=== PATIENT | female | born 1960 | race Caucasian/White ===

== ENCOUNTER 2020-08-25 13:18 | Outpatient (CLI) | payer MEDICARE | END 2020-08-25 23:59 | disposition home or self-care (01) | LOC: CFH 13:18 | PROVIDERS: ATTEND Internal Medicine | DX: I73.9 Peripheral vascular disease, unspecified (principal); R11.0 Nausea; K21.9 Gastro-esophageal reflux disease without esophagitis; K64.8 Other hemorrhoids; K58.1 Irritable bowel syndrome with constipation; D12.6 Benign neoplasm of colon, unspecified; F41.9 Anxiety disorder, unspecified; I67.82 Cerebral ischemia | CPT/HCPCS: 70450 ==

== ENCOUNTER 2020-09-10 10:04 | Outpatient (CLI) | payer MEDICARE ==
[2020-09-10] MEDS ORDERED: HYDR-2214 PO (10:46)
[2020-09-10] MEDS ORDERED: LEVO75TA5 PO (10:46)
[2020-09-10] MEDS ORDERED: OMEP20TA62 PO (10:46)
[2020-09-10] MEDS ORDERED: ONDA4TAB13 SL (10:46)
[2020-09-10] MEDS ORDERED: ABX (10:46)
[2020-09-10] MEDS ORDERED: ALPR0.254 PO (10:46)
[2020-09-10] MEDS ORDERED: ALBU8.5H8 INH (11:09)
[2020-09-10] MEDS ORDERED: MULT-658 PO (11:09)
[2020-09-10] MEDS ORDERED: VITAMIN C (11:09)
[2020-09-10] MEDS ORDERED: CALCIUM (11:09)
== END 2020-09-10 23:59 | disposition home or self-care (01) ==
LOC: STAR 10:04
PROVIDERS: ATTEND Internal Medicine
DX: Z20.822 Contact with and (suspected) exposure to COVID-19 (principal); R11.0 Nausea; K21.9 Gastro-esophageal reflux disease without esophagitis; K64.8 Other hemorrhoids; K58.1 Irritable bowel syndrome with constipation; Z86.010 Personal history of colon polyps; F41.9 Anxiety disorder, unspecified
CPT/HCPCS: U0003

== ENCOUNTER 2020-09-15 06:07 | Day surgery (SDC) | payer MEDICARE ==
[~2020-09-15] VITALS: Ht 165.1 cm; Wt 58.1 kg
[~2020-09-15 06:07] MED LIST: ABX; ALBU8.5H8 INH; ALPR0.254 PO; CALCIUM; HYDR-2214 PO; LEVO75TA5 PO; MULT-658 PO; OMEP20TA62 PO; ONDA4TAB13 SL; VITAMIN C
[2020-09-15 07:01] VITALS: BP 103/47
[2020-09-15] MEDS ORDERED: CHLORHEXIDINE 15 ML UDC ONE (07:07)
[2020-09-15] MEDS ORDERED: CHLORHEXIDINE 15 ML UDC PO ONE (07:30)
[2020-09-15] MEDS ORDERED: LACTATED RINGERS 1,000 ML IV SCH (07:30)
[2020-09-15] MEDS ORDERED: PROPOFOL 50 ML ONE (07:47)
[2020-09-15] MEDS ORDERED: PROPOFOL 10 MG/ML, 20ML ONE ×2 (08:21→08:39)
[2020-09-15] MEDS ORDERED: LABETALOL 5MG/ML, 20ML IV PRN (09:00)
[2020-09-15] MEDS ORDERED: hydrALAzine 20 MG/ML, 1ML IV PRN (09:00)
[2020-09-15] MEDS ORDERED: EPHEDRINE 50 MG/ML, 1ML IVPush PRN (09:00)
[2020-09-15] MEDS ORDERED: ACETAMINOPHEN 325 MG TABLET PO PRN (09:00)
[2020-09-15] MEDS ORDERED: HYDROmorphone 1 MG/ML, 1ML INJ IVPush PRN (09:00)
[2020-09-15] MEDS ORDERED: OXYcodone 5 MG/5 ML ORAL.SOL UDC PO PRN (09:00)
[2020-09-15] MEDS ORDERED: PROMETHAZINE 25 MG/ML, 1ML IVPush PRN (09:00)
[2020-09-15] MEDS ORDERED: FENTANYL PF 100 MCG/2ML IV PRN (09:00)
[2020-09-15] MEDS ORDERED: ONDANSETRON 2MG/ML, 2ML IVPush PRN (09:00)
[2020-09-15] MEDS ORDERED: ONDANSETRON 2MG/ML, 2ML ONE (09:15)
== END 2020-09-15 10:36 | disposition home or self-care (01) ==
LOC: OUT 06:07
PROVIDERS: ATTEND Internal Medicine
DX: Z09 Encounter for follow-up examination after completed treatment for conditions other than malignant neoplasm (principal); D12.2 Benign neoplasm of ascending colon; D12.5 Benign neoplasm of sigmoid colon; K64.8 Other hemorrhoids; K21.9 Gastro-esophageal reflux disease without esophagitis; K29.50 Unspecified chronic gastritis without bleeding; K20.90 Esophagitis, unspecified without bleeding; K44.9 Diaphragmatic hernia without obstruction or gangrene; F41.9 Anxiety disorder, unspecified; E03.9 Hypothyroidism, unspecified; J45.909 Unspecified asthma, uncomplicated; Z79.890 Hormone replacement therapy; Z79.899 Other long term (current) drug therapy; Z87.891 Personal history of nicotine dependence; Z88.2 Allergy status to sulfonamides; Z88.8 Allergy status to other drugs, medicaments and biological substances
CPT/HCPCS: 43239; 45380; 45385; 88305; J2405; J2704; J7120